=== PATIENT | female | born 1945 | race Caucasian/White ===

== ENCOUNTER 2022-02-04 09:40 | Outpatient (CLI) | payer OTHER | END 2022-02-04 10:00 | disposition home or self-care (01) | LOC: RAD 09:40 | PROVIDERS: ATTEND Orthopaedic Surgery | DX: S42.225A 2-part nondisplaced fracture of surgical neck of left humerus, initial encounter for closed fracture (principal); S50.02XA Contusion of left elbow, initial encounter ==

== ENCOUNTER 2022-02-04 10:40 | Outpatient (CLI) | payer OTHER | END 2022-02-04 10:47 | disposition home or self-care (01) | LOC: LAB 10:40 | PROVIDERS: ATTEND Orthopaedic Surgery | DX: E55.9 Vitamin D deficiency, unspecified (principal); M85.9 Disorder of bone density and structure, unspecified; E56.1 Deficiency of vitamin K; E21.3 Hyperparathyroidism, unspecified; E88.9 Metabolic disorder, unspecified; M81.8 Other osteoporosis without current pathological fracture; S50.02XA Contusion of left elbow, initial encounter ==